=== PATIENT | male | born 1940 | race Caucasian/White ===

== ENCOUNTER → 2016-08-11 | Day surgery (SDC) | payer OTHER ==
[~2016-08-11] VITALS: Ht 180.3 cm; Wt 75.1 kg
[~2016-08-11] MED LIST: ACETAMINOPHEN 1000 MG/100 ML VIAL IV ONE; ASPI1TAB69 PO; DEXAMETHASONE SOD PHOS 4 MG/ML VIAL ONE; DICLOFENAC SODIUM 37.5 MG/ML VIAL IV PUSH ONE; DILT180C56 PO; DO NOT ADM ANY ANTICOAGULANT DRUGS XX PRN; FAMOTIDINE 20 MG/2 ML VIAL ONE; INSULIN HUMAN REGULAR 1,000 UNITS/10 ML VIAL SQ PRN; LACTATED RINGER'S 1000 ML IV SCH; LEVA500T PO; LEVOFLOXACIN 500 MG PREMIX INJ 100 ML IV PRN; METOPROLOL TARTRATE 25 MG TAB PO PRN; MIDAZOLAM HCL 2 MG/2 ML VIAL ONE; MULT1TAB84 PO; ONDANSETRON HCL 4 MG/2 ML VIAL IV PUSH ONE; ONDANSETRON HCL 4 MG/2 ML VIAL IV PUSH PRN; PERC5TAB12 PO; PHENYLEPH/NS 1000 MCG/10 ML SYR IV ONE; PRAV80TA2 PO; PROPOFOL 200 MG/20 ML AMP IV ONE; SODIUM CHLORID 0.9% 500 ML IV SCH; ePHEDrine/NS 50 MG/5 ML SYR IV ONE; oxyCODONE/ACETAMINOPHEN 5 MG/325 MG TAB PO PRN
[2016-08-11 06:37] VITALS: BP 148/73; PULSE 68; RESP 16; TEMP 99.2; O2SAT 96
[2016-08-11 07:09] LABS: AUTOMATED NEUTROPHIL # 7.8 TH/MM3 (1.8-7.7); BASOPHIL # 0.1 TH/MM3 (0-0.2); BASOPHIL % 0.9 % (0.0-2.0); EOSINOPHIL # 0.2 TH/MM3 (0-0.4); EOSINOPHIL % 1.3 % (0.0-4.0); HEMATOCRIT 47.2 % (39.0-51.0); HEMO FLAGS DIFF FINAL; LYMPH % 27.7 % (9.0-44.0); LYMPHOCYTE # 3.5 TH/MM3 (1.0-4.8); MEAN CELL VOLUME 94.1 FL (80.0-100.0); MEAN CORPUSCULAR HEMOGLOBIN 32.4 PG (27.0-34.0); MEAN CORPUSCULAR HGB CONC 34.4 % (32.0-36.0); MONO % 8.6 % (0.0-8.0); NEUT % 61.5 % (16.0-70.0); PLATELET COUNT 300 TH/MM3 (150-450); RED BLOOD COUNT 5.02 MIL/MM3 (4.50-5.90); WHITE BLOOD COUNT 12.6 TH/MM3 (4.0-11.0)
--- NOTE | 2016-08-11 09:18 | HHI.PR ---
Immediate Post Op Note Procedure Date: Aug 11, 2016 Pre Op Diagnosis: Bladder tumor Post Op Diagnosis: Same Surgeon: Juan Mares Microfiche Duplicator(s): None Procedure: Cystoscopy and transurethral resection of bladder tumor measuring approximately 1.5 cm involving the posterior wall Findings: 1.5 cm bladder tumor involving posterior wall Additional Information: Indication for procedure: Case of a 75 year old gentleman with history of a low- grade bladder tumor resected in May 2008. Recent cystoscopic evaluation and a straight a single recurrent lesion involving the posterior bladder wall. Patient presents today to undergo cystoscopy and transurethral resection. Procedure in detail: Patient was brought to the cystoscopy suite and placed supine on the cystoscopy table. Patient was next placed under general anesthesia. He was then repositioned in the dorsal lithotomy position and prepped and draped in normal sterile fashion. After an appropriate timeout was undertaken I proceeded with cystoscopic evaluation utilizing the rigid cystoscope with the 30 lens and 20 German sheath. The urethra was patent without stricture formation, the prostate was nonobstructing, further passive cystoscope within the urinary bladder revealed both right and left ureteral orifices to be in correct anatomic position effluxing clear yellow urine. There was a single frondular bladder tumor noted to the posterior wall measuring approximately 1.5 cm. Next, the Cystoscope was exchanged for the resectoscope with the 24 German cutting loop. And a transverse resection of the tumor was accomplished. The tumor was on a narrow stalk and the base of the tumor subsequently fulgurated. The uric evacuator was utilized to recover the resected bladder tumor tissue which was sent off to pathology. A 16 German 10 cc Edwards catheter was next placed and connected to gravity drainage. The patient tolerated the procedures well and was transferred to the PACU in satisfactory condition. Complications: None Specimen(s) removed: Resected bladder tumor Estimated blood loss: Minimal Anesthesia: General Drains: None Fluids: refer to anesthesia record number Patient to: PACU Patient Condition: Good Date/Time of Procedure: SEE SURGICAL CARE RECORD Juan Mares MD Aug 11, 2016 09:18
[2016-08-11 11:08] VITALS: BP 138/58; PULSE 59; RESP 20; TEMP 97.1; O2SAT 95
--- NOTE | 2016-08-11 12:25 | EKG ---
Date Performed: 08/11/2016 Time Performed: 06:58:33 PTAGE: 76 years EKG: Sinus rhythm WITH SINUS ARRHYTHMIA NORMAL ECG NO PREVIOUS TRACING DOCTOR: Shahzad Angel Interpretating Date/Time 08/11/2016 12:22:31
== END | disposition home or self-care (01) ==
LOC: HSDC 06:06
PROVIDERS: ATTEND Urology
DX: C67.9 Malignant neoplasm of bladder, unspecified (principal); Z01.810 Encounter for preprocedural cardiovascular examination
CPT/HCPCS: 00912; 52234; 85025; 88307; 93005; J0131; J1100; J1130; J1956; J2250; J2370; J2405; J3010; J7120

== ENCOUNTER → 2017-08-17 | Day surgery (SDC) | payer OTHER ==
[~2017-08-17] VITALS: Ht 180.3 cm; Wt 78.8 kg
[~2017-08-17] MED LIST changes: +ACETAMINOPHEN 1000 MG/100 ML 100 ML IV ONE; -ACETAMINOPHEN 1000 MG/100 ML VIAL IV ONE; -ASPI1TAB69 PO; +CARD180C5 PO; +CHLORHEXIDINE GLUCONATE 2 % 1 PACK (2 CLOTHS) TOPICAL PRN; +DEXAMETHASONE SOD PHOS 4 MG/ML VIAL IV ONE; -DEXAMETHASONE SOD PHOS 4 MG/ML VIAL ONE; -DICLOFENAC SODIUM 37.5 MG/ML VIAL IV PUSH ONE; -DILT180C56 PO; +DO NOT ADM ANY ANTICOAGULANT DRUGS PRN; -DO NOT ADM ANY ANTICOAGULANT DRUGS XX PRN; +ECASA81 PO; -FAMOTIDINE 20 MG/2 ML VIAL ONE; +GLYCOPYRROLATE 1 MG/5 ML SYRINGE IV PUSH ONE; -INSULIN HUMAN REGULAR 1,000 UNITS/10 ML VIAL SQ PRN; +LACTATED RINGER'S 1000 ML IV PRN; -LACTATED RINGER'S 1000 ML IV SCH; -LEVA500T PO; +LEVA500T33 PO; -LEVOFLOXACIN 500 MG PREMIX INJ 100 ML IV PRN; +LEVOFLOXACIN 500 MG PREMIX INJ 100 ML IV SCH; +LIDOCAINE HCL 1% PF 5 ML SYRINGE OTHER ONE; -MIDAZOLAM HCL 2 MG/2 ML VIAL ONE; -MULT1TAB84 PO; +MULTTAB67 PO; +NEOSTIGMINE 5 MG/5 ML SYRINGE IV PUSH ONE; -PHENYLEPH/NS 1000 MCG/10 ML SYR IV ONE; +POVIDONE IODINE 5% (ANTISEPSIS KIT) 4 APPLICATIONS EACH NARE PRN; +ROCURONIUM INJ 50 MG/5 ML SYRINGE IV PUSH ONE; +SODIUM CHLORID 0.9% 500 ML IV PRN; -SODIUM CHLORID 0.9% 500 ML IV SCH; -ePHEDrine/NS 50 MG/5 ML SYR IV ONE
[2017-08-17 07:35] LABS: AUTOMATED NEUTROPHIL # 7.4 TH/MM3 (1.8-7.7); BASOPHIL # 0.1 TH/MM3 (0-0.2); BASOPHIL % 0.7 % (0.0-2.0); EOSINOPHIL # 0.1 TH/MM3 (0-0.4); EOSINOPHIL % 1.2 % (0.0-4.0); HEMATOCRIT 44.5 % (39.0-51.0); HEMOGLOBIN 15.2 GM/DL (13.0-17.0); LYMPH % 22.5 % (9.0-44.0); LYMPHOCYTE # 2.4 TH/MM3 (1.0-4.8); MEAN CELL VOLUME 92.7 FL (80.0-100.0); MEAN CORPUSCULAR HEMOGLOBIN 31.8 PG (27.0-34.0); MEAN CORPUSCULAR HGB CONC 34.3 % (32.0-36.0); MEAN PLATELET VOLUME 7.8 FL (7.0-11.0); MONO % 7.7 % (0.0-8.0); MONOCYTE # 0.8 TH/MM3 (0-0.9); NEUT % 67.9 % (16.0-70.0); PLATELET COUNT 337 TH/MM3 (150-450); RED BLOOD COUNT 4.79 MIL/MM3 (4.50-5.90); RED CELL DISTRIBUTION WIDTH 13.8 % (11.6-17.2); WHITE BLOOD COUNT 10.9 TH/MM3 (4.0-11.0)
--- NOTE | 2017-08-17 09:13 | PD.OP ---
Operative Report Date of Surgery: Aug 17, 2017 Preoperative Diagnosis: (1) Bladder mass Postoperative Diagnosis: (1) Bladder mass Procedure: Cystoscopy and transurethral resection of bladder tumor Anesthesia: General Surgeon: Juan Mares Hadoop Infrastructure Architect(s): None Operation and Findings: Indication for procedure: Case of a pleasant 69-year-old gentleman with history of bladder cancer initially diagnosed back in 2007. Recent cystoscopic evaluation demonstrated an approximately 1.5 cm recurrent tumor mass involving the right posterior wall of the bladder. Patient presents today to undergo transurethral resection of this recurrent mass. Operative procedure in detail: Patient was brought to the operating room suite and placed supine on the OR table. He was then placed under general anesthesia. He was then repositioned in the dorsolithotomy position and prepped and draped in normal sterile fashion. After an appropriate timeout was undertaken I proceeded with cystoscopic evaluation utilizing the rigid cystoscope with the 22 Finnish sheath and both the 30 and 70 lenses. The patient was once again noted to have a recurrent tumor mass involving the right posterior wall of the bladder very close to the bladder outlet. No other tumors were seen. The cystoscope was then exchanged for the resectoscope with the 24 Finnish Cutting Loop. The patient next underwent a transurethral resection of this recurrent lesion. The total size was estimated to be approximately 1.5 cm. A small amount of tissue was sent off to pathology and the base of the tumor site was fulgurated. A 16 Finnish 10 cc Edwards catheter was then placed after the resectoscope was withdrawn. The patient tolerated the procedures without complications and was transferred to the PACU in satisfactory condition. Juan Mares MD Aug 17, 2017 09:12
[2017-08-17 10:48] VITALS: BP 151/85; PULSE 53; RESP 18; TEMP 97; O2SAT 98
--- NOTE | 2017-08-17 11:01 | EKG ---
Date Performed: 08/17/2017 Time Performed: 06:57:47 PTAGE: 77 years EKG: Sinus rhythm WITH MARKED SINUS ARRHYTHMIA MINIMAL ST DEPRESSION BORDERLINE ECG Since the prior tracing, there has been no significant change PREVIOUS TRACING : 08/11/2016 06.58 DOCTOR: Ponce Echeverria Interpretating Date/Time 08/17/2017 10:59:04
--- NOTE | 2017-08-17 11:01 | EKG ---
Date Performed: 08/17/2017 Time Performed: 09:39:21 PTAGE: 77 years EKG: Sinus rhythm WITH MARKED SINUS ARRHYTHMIA NONSPECIFIC ST & T-WAVE ABNORMALITY BORDERLINE ECG Since the prior trac ing, there has been no significant change PREVIOUS TRACING : 08/17/2017 06.57 DOCTOR: Ponce Echeverria Interpretating Date/Time 08/17/2017 10:58:56
== END | disposition home or self-care (01) ==
LOC: HSDC 06:15
PROVIDERS: ATTEND Urology
DX: C67.4 Malignant neoplasm of posterior wall of bladder (principal); I10 Essential (primary) hypertension; I25.2 Old myocardial infarction; H54.7 Unspecified visual loss; Z98.61 Coronary angioplasty status; F17.200 Nicotine dependence, unspecified, uncomplicated; Z01.818 Encounter for other preprocedural examination
CPT/HCPCS: 00912; 52234; 85025; 88307; 93005; J0131; J1100; J1956; J2405; J2710; J3010; J7120